=== PATIENT | female | born 1985 | race Two or more races ===

== ENCOUNTER 2023-07-04 05:46 | Emergency (ER) | payer OTHER ==
[~2023-07-04] VITALS: Ht 157.5 cm; Wt 90.7 kg
[2023-07-04 08:35] LABS: PH,URINE 5.5 (5.0-8.0); URINE APPEARANCE Cloudy; URINE BILIRRUBIN Negative (NEGATIVE); URINE BLOOD Small; URINE COLOR Yellow; URINE GLUCOSE Negative (NEGATIVE); URINE LEUKOCYTE Large; URINE NITRATE Negative; URINE PROTEIN Trace (NEGATIVE); URINE UROBILINOGEN 0.2 E.U./dl
[2023-07-04 08:36] LABS: URINE BACTERIA 2861.3 uL (0.0-1933); URINE RBC 30.8 uL (0.0-20.8); URINE WBC 247.3 uL (0.0-23.2)
[2023-07-04 09:04] LABS: ALBUMIN 3.5 gm/dL (3.4-5.0); BILIRUBIN TOTAL 0.44 mg/dL (0.3-1.2); CALCIUM 9.1 mg/dL (8.5-10.1); CREATININE SERUM 0.64 mg/dL (0.55-1.02); GFR 103.85; POTASSIUM 3.4 mEq/L (3.5-5.1); TOTAL PROTEIN 7.5 gm/dL (6.4-8.2)
[2023-07-04 09:05] LABS: URINE EPITHELIAL CELLS > 201.7 uL (0.0-38.8)
== END 2023-07-04 09:44 | disposition home or self-care (01) ==
LOC: ER 05:46
DX: N39.0 Urinary tract infection, site not specified (principal); F41.9 Anxiety disorder, unspecified